=== PATIENT | male | born 1980 | race Caucasian/White ===

== ENCOUNTER 2018-09-09 23:37 | Emergency (ER) | payer OTHER ==
[~2018-09-09] VITALS: Ht 182.9 cm; Wt 88.5 kg
[2018-09-09 23:38] VITALS: BP 104/63
--- NOTE | 2018-09-09 23:43 | NUR ---
2338-- PT BIBA BLS TO ER BED 8
[2018-09-09] MEDS ORDERED: LIDOCAINE 1% 500 MG/50 ML VIAL INJ SCH (23:50)
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
[2018-09-10] MEDS ORDERED: LIDOCAINE MPF 1% - 5 mL VIAL 10 ML ONE (00:19)
--- NOTE | 2018-09-10 00:24 | NUR ---
PT TAKEN TO RAD VIA WHEELCHAIR
--- NOTE | 2018-09-10 00:48 | NUR ---
DR. LOWE EVALUATING PT
[2018-09-10] MEDS ORDERED: BACITRACIN OINT 500 UNITS/GM PKT TP ONE ×3 (01:05→01:16)
[2018-09-10 01:20] VITALS: BP 108/64
--- NOTE | 2018-09-10 01:20 | NUR ---
Patient discharged with v/s stable. Written and verbal after care instructions given and explained. Patient verbalized understanding. Ambulatory with steady gait. All questions addressed prior to discharge. Advised to follow up with PMD.
== END 2018-09-10 01:20 | disposition home or self-care (01) ==
LOC: MED 23:37
DX: S51.812A Laceration without foreign body of left forearm, initial encounter (principal); F10.10 Alcohol abuse, uncomplicated; Y90.9 Presence of alcohol in blood, level not specified; W45.8XXA Other foreign body or object entering through skin, initial encounter; Y93.89 Activity, other specified; Y92.89 Other specified places as the place of occurrence of the external cause; Y99.8 Other external cause status
CPT/HCPCS: 12002; 70450; 73090; 90471; 90715; 99284; J2001; Q0092

== ENCOUNTER 2018-09-19 16:05 | Emergency (ER) | payer OTHER ==
[~2018-09-19] VITALS: Ht 182.9 cm; Wt 92.5 kg
[2018-09-19 16:07] VITALS: BP 125/69
--- NOTE | 2018-09-19 16:12 | NUR ---
PT AMBULATED TO ER BED 11
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
[2018-09-19 17:12] VITALS: BP 125/72
== END 2018-09-19 17:12 | disposition home or self-care (01) ==
LOC: MED 16:05
DX: S51.812D Laceration without foreign body of left forearm, subsequent encounter (principal); R21 Rash and other nonspecific skin eruption; Z88.0 Allergy status to penicillin; X58.XXXD Exposure to other specified factors, subsequent encounter
CPT/HCPCS: 99283